=== PATIENT | male | born 1970 | race Two or more races ===

== ENCOUNTER → 2017-02-20 | Outpatient (CLI) | payer OTHER ==
--- NOTE | ~2017-02-20 | CR97 ---
[facility] A Service of [facility] & [facility] RADIOLOGY TEXT RESULTS PATIENT: RAI SIMS LOCATION: [facility] : 72 UNIT #: [id number] AGE: [address]: JORDY HARRINGTON APRN SEX: M ORDER DR: [id number] [facility]. [place], [place] [address] [id number] O MR#: [id number] Acc #: [id number] NAME: RAI SIMS : 1970 SEX: M STUDY DATE/TIME: 02/20/2017 14:22 UNIT: [facility] ROOM: STUDY DESCRIPTION: CR Esophagram Attending Physician: Jordy Harrington Aprn Referring Physician: Jordy Harrington Aprn Ordering Physician: Jordy Harrington Aprn Primary Care Physician: Alexandra Sow M.D. MEDICAL IMAGING REPORT This report is preliminary unless electronic signature is present EXAM Double-contrast barium esophagram. INDICATION Dysphagia with water. Soreness in the throat. Sour taste in the mouth in mornings. Patient also reports epigastric pain. TECHNIQUE Patient was administered bicarbonate crystals followed by thick and thin barium. Multiple fluoroscopic images were obtained. FINDINGS Initial learning disabilities specialist image was unremarkable. Patient's esophagus is of normal caliber with no evidence of stricture or mass lesion. Esophageal mucosa appeared within normal limits. No abnormality. The hypopharynx was seen. Esophageal motility was within normal limits and no hiatal hernia was identified. I did not see any reflux and a barium tablet passed easily into the stomach. Total fluoroscopy time was 0.9 minutes and a total of 13 fluoroscopic images were obtained. IMPRESSION Normal double contrast barium esophagram. Dictated by... Yesenia Jacques M.D. THIS IS AN ELECTRONICALLY VERIFIED REPORT Yesenia Jacques M.D. at 02/21/2017 5:11 PM AFF/tmw TD: 02/21/2017 14:54 [facility] A Service of [facility] & [facility] RADIOLOGY TEXT RESULTS PATIENT: RAI SIMS LOCATION: [facility] #: [id number] : [birth year] UNIT #: [id number] AGE: [address]: JORDY HARRINGTON APRN SEX: M ORDER DR: JOB #: [id number] MEDICAL IMAGING REPORT Page 1 of 1 COPY
== END | disposition home or self-care (01) ==
LOC: CRAD 13:14
DX: R13.10 Dysphagia, unspecified (principal); F45.8 Other somatoform disorders
CPT/HCPCS: 74220

== ENCOUNTER → 2017-04-23 | Outpatient (CLI) | payer OTHER ==
--- NOTE | ~2017-04-23 | MR104 ---
[facility] A Service of [facility] & [facility] RADIOLOGY TEXT RESULTS PATIENT: RAI SIMS LOCATION: [facility] : 72 UNIT #: [id number] AGE: [address]: Omid Ordaz MD SEX: M ORDER DR: [id number] [facility] [address] [place], [place] [address] [id number] O MR#: [id number] Acc #: [id number] NAME: RAI SIMS : 1970 SEX: M STUDY DATE/TIME: 04/23/2017 15:27 UNIT: [facility] ROOM: STUDY DESCRIPTION: MR Knee Wo Contrast Rt Attending Physician: Omid Ordaz M.D. Referring Physician: Omid Ordaz M.D. Ordering Physician: Omid Ordaz M.D. Primary Care Physician: Alexandra Sow M.D. MRI CENTER REPORT This report is preliminary unless electronic signature is present. EXAM MRI of the right knee, 04/23/2017 HISTORY Order states: Right medial meniscus tear, pain. History sheet states: No trauma, no fall. No knee surgery. Pain and swelling for 3 years medially, increasing the last 3 weeks. COMPARISON Right knee radiographs, 07/17/2016. FINDINGS Joint fluid is at the upper limits of normal and there is no popliteal cyst. Patellofemoral joint space narrowing is noted without malalignment. 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 Quadriceps and patellar tendons are intact. There is nonspecific inflammation in the infrapatellar fat pad. Cruciate ligaments are intact. The lateral meniscus, lateral collateral ligament complex, and popliteus tendon are normal. There is moderate chondromalacia of the posterior-superior non-weightbearing lateral femoral condyle. 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 There is a longitudinal oblique undersurface [facility] A Service of [facility] & [facility] RADIOLOGY TEXT RESULTS PATIENT: RAI SIMS LOCATION: [facility] : 72 UNIT #: [id number] AGE: [address]: Omid Ordaz MD SEX: M ORDER DR: tear in the posterior body and horn of the medial meniscus with slight truncation in the far posterior horn along the free edge near the root insertion. There is no displaced flap or fragment noted. MCL is intact. There is MCL reactive bursal inflammation. There is no marrow lesion or fracture. There is a small, calcified loose body along the posterior central joint line corresponding with a radiographic calcification. It measures 5 mm. Subtle synovitis or areas of tiny loose bodies or debris are noted in several joint recesses. No additional sizable intraarticular loose bodies are noted. There is a complex of fatty signal filling defects with surrounding inflammation in the deep aspect of the proximal lateral gastrocnemius muscle. These do not have the appearance of a fabella and could reflect extruded small, ossified loose bodies in an unusual location. There is no obvious adjacent capsular defect. They are probably of no clinical significance. IMPRESSION 1. Advanced medial compartment arthrosis detailed above, with a longitudinal, mildly complex tear posterior body horn medial meniscus without a displaced flap or fragment. 2. Moderate patellofemoral arthrosis. 3. Cruciate ligaments and lateral meniscus are normal. 4. 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 5. Loose bodies and synovitis detailed above. Dictated by... Juliana Olsen M.D. THIS IS AN ELECTRONICALLY VERIFIED REPORT Juliana Olsen M.D. at 04/25/2017 1:05 PM [facility]/psc TD: 04/24/2017 11:55 JOB #: [id number] MRI CENTER REPORT Page 1 of 1 COPY
== END | disposition home or self-care (01) ==
LOC: CMRI 14:51
DX: S83.241A Other tear of medial meniscus, current injury, right knee, initial encounter (principal); M17.11 Unilateral primary osteoarthritis, right knee; M94.261 Chondromalacia, right knee; M65.861 Other synovitis and tenosynovitis, right lower leg; M23.41 Loose body in knee, right knee
CPT/HCPCS: 73721